=== PATIENT | male | born 1965 | race Caucasian/White ===

== ENCOUNTER 2017-06-01 14:18 | Emergency (ER) | payer OTHER ==
--- NOTE | 2017-06-01 14:47 | EDM.PDOC ---
ED HPI GENERAL MEDICAL PROBLEM - General Chief Complaint: Fever Stated Complaint: FEVER Time Seen by Provider: 06/01/17 14:38 Source of Information: Reports: Patient History Limitations: Reports: No Limitations - History of Present Illness INITIAL COMMENTS - FREE TEXT/NARRATIVE: 51-year-old male presents to the ED for evaluation of acute onset of high fever 103.2. His out her hunting from [place]. Patient is been ill for the last 9 days. He was seen in clinic and diagnosed with a sinus infection treated with a Z-Toñito and cough syrup for cough. He thought initially that his temp settled after 2 days of antibiotics the cough has persisted. He states he is a constant tickle in his throat that makes him cough since 2009 when he returned from [place]. He is coughing up small quantities of yellowish phlegm without hemoptysis. At present he has diffuse myalgia and a significant headache. Appetite has been poor but he is making himself eat. No dysuria urgency or frequency. No nausea vomiting or diarrhea. He's never been diagnosed a sinus infection in the past. He has had numerous tick bites in [facility] over the last 3-4 weeks. He's had no rashes to suggest tickborne illness. There is an outbreak of loss and virus that is tick born in [facility] this year. I'm unclear if it causes upper respiratory tract symptoms versus arthralgia and rash is similar to Lyme disease. Onset: Today (Fever spiked again today 103.2. Initial illness started May 22. Seem to improve after 2 days of Z-Toñito.) Duration: Day(s): Location: Reports: Chest, Generalized (Paroxysmal cough minimally productive. Generalized myalgia with headache.) Quality: Reports: Ache, Pressure Severity: Moderate Improves with: Reports: Medication (Motrin helps some.) Worsens with: Reports: Other Context: Reports: Other (Acute febrile illness.). Denies: Activity (Activity.) , Exercise, Lifting, Sick Contact, Trauma Associated Symptoms: Reports: Chest Pain, Cough, cough w sputum (From coughing) , Diaphoresis, Fever/Chills, Headaches, Loss of Appetite, Malaise, Shortness of Breath (Can't take a deep breath), Weakness (Today with the fever.). Denies: Confusion, Nausea/Vomiting, Rash, Seizure ( due to coughing.), Syncope Treatments [employer]: Reports: NSAIDS (Motrin.) - Related Data Allergies Allergy/AdvReac Type Severity Reaction Status Date / Time No Known Allergies Allergy Verified 06/01/17 14:29 Home Meds: Home Meds Benzonatate 100 mg PO TID PRN 06/01/17 [History] Hydrocodone/Chlorphen P-Stirex [Tussionex Pennkinetic Susp] 5 ml PO Q12H PRN # 60 ml 06/01/17 [Rx] Levofloxacin [Levaquin] 500 mg PO Q24H #10 tablet 06/01/17 [Rx] Past Medical History - Past Health History Medical/Surgical History: Denies Medical/Surgical History Social & Family History - Tobacco Use Smoking Status *Q: Never Smoker - Recreational Drug Use Recreational Drug Use: No ED ROS GENERAL - Review of Systems Review Of Systems: See Below Constitutional: Reports: Fever, Chills, Malaise, Weakness, Fatigue, Decreased Appetite, Weight Loss HEENT: Denies: Hearing Loss, Nose Pain, Vertigo Respiratory: Reports: Shortness of Breath, Cough. Denies: Hemoptysis (Severe paroxysmal cough that is minimally productive.) Cardiovascular: Reports: Chest Pain, Lightheadedness. Denies: Blood Pressure Problem (Only from coughing so much.), Claudication, Dyspnea on Exertion, Edema (At times from coughing so much.), Orthopnea Endocrine: Reports: Fatigue GI/Abdominal: Reports: Decreased Appetite. Denies: Distension, Flatus, Hematemesis, Hematochezia : Reports: No Symptoms Musculoskeletal: Reports: Muscle Pain Skin: Reports: No Symptoms (Generalized myalgia) Neurological: Reports: Dizziness (At times with high fever). Denies: Confusion , Numbness, Tingling Psychiatric: Reports: No Symptoms Hematologic/Lymphatic: Reports: No Symptoms Immunologic: Reports: No Symptoms ED EXAM, GENERAL - Physical Exam Exam: See Below Exam Limited By: No Limitations General Appearance: Alert, Lethargic, Other (Appears ill.) Eye Exam: Bilateral Eye: Normal Inspection Nose: Nasal Tenderness Throat/Mouth: Normal Inspection, Normal Lips, Normal Teeth, Normal Oropharynx Head: Atraumatic, Normocephalic Neck: Normal Inspection, Supple, Non-Tender, Full Range of Motion. No: Lymphadenopathy (L), Lymphadenopathy (R) Respiratory/Chest: No Respiratory Distress, Lungs Clear, Normal Breath Sounds, No Accessory Muscle Use Cardiovascular: Normal Peripheral Pulses, Regular Rate, Rhythm, No Edema, No Gallop, No Murmur Peripheral Pulses: 3+: Posterior Tibial (L), Posterior Tibial (R), Dorsalis Pedis (L), Dorsalis Pedis (R) GI/Abdominal: Normal Bowel Sounds, Soft, Non-Tender, No Organomegaly, No Abnormal Bruit, Pelvis Stable Back Exam: Normal Inspection, Full Range of Motion Extremities: Normal Inspection, Normal Range of Motion, Non-Tender, No Pedal Edema, Normal Capillary Refill Neurological: Alert, Oriented, CN II-XII Intact, Normal Cognition, Normal Gait Psychiatric: Normal Affect, Normal Mood Skin Exam: Warm, Dry, Intact, Normal Color, No Rash Course - Vital Signs Last Recorded V/S: Last Vital Signs Temp 36.6 C 06/01/17 17:01 Pulse 80 06/01/17 17:01 Resp 16 06/01/17 17:01 BP 99/69 06/01/17 17:01 Pulse Ox 93 L 06/01/17 17:01 - Orders/Labs/Meds Orders: Active Orders 24 hr Category Date Time Status Chest 2V [CR] Stat Exams 06/01/17 14:45 Taken STEVEN BRANCH NUCLEIC ACID AMP [MREF] Stat Lab 06/01/17 15:00 Received CULTURE BLOOD [BC] Stat Lab 06/01/17 15:00 Received CULTURE BLOOD [BC] Stat Lab 06/01/17 15:05 Received Blood Culture x2 Reflex Set [OM.PC] Stat Oth 06/01/17 14:49 Ordered Labs: Laboratory Tests 06/01/17 06/01/17 06/01/17 Range/Units 15:00 15:00 15:00 WBC 2.61 L (4.23-9.07) K/mm3 RBC 4.51 L (4.63-6.08) M/mm3 Hgb 14.0 (13.7-17.5) gm/L Hct 40.8 (40.1-51.0) % MCV 90.5 (79.0-92.2) fl MCH 31.0 (25.7-32.2) pg MCHC 34.3 (32.2-35.5) g/dl RDW Std Deviation 41.8 (35.1-43.9) fL Plt Count 105 L (163-337) K/mm3 MPV 9.5 (9.4-12.3) fl Neutrophils % (Manual) 60 (40-60) % Band Neutrophils % 0 (0-10) % Lymphocytes % (Manual) 38 (20-40) % Atypical Lymphs % 0 % Monocytes % (Manual) 1 L (2-10) % Eosinophils % (Manual) 0 L (0.8-7.0) % Basophils % (Manual) 1 (0.2-1.2) Platelet Estimate Adequate Plt Morphology Comment Normal RBC Morph Comment Normal ESR 21 H (0-15) mm/hr Sodium 145 (136-145) mEq/L Potassium 3.7 (3.5-5.1) mEq/L Chloride 107 (98-107) mEq/L Carbon Dioxide 27 (21-32) mEq/L Anion Gap 14.7 (5-15) BUN 14 (7-18) mg/dL Creatinine 1.3 (0.7-1.3) mg/dL Est Cr Clr Drug Dosing 73.21 mL/min Estimated GFR (MDRD) 59 (>60) mL/min BUN/Creatinine Ratio 10.8 L (14-18) Glucose 108 H (74-106) mg/dL Calcium 8.3 L (8.5-10.1) mg/dL Total Bilirubin 0.7 (0.2-1.0) mg/dL AST 43 H (15-37) U/L ALT 77 H (16-63) U/L Alkaline Phosphatase 77 (46-116) U/L C-Reactive Protein 5.2 H* (<1.0) mg/dL Total Protein 6.7 (6.4-8.2) g/dl Albumin 3.5 (3.4-5.0) g/dl Globulin 3.2 gm/dL Albumin/Globulin Ratio 1.1 (1-2) Meds: Medications Discontinued Medications Generic Name Dose Route Start Last Admin Trade Name Freq PRN Reason Stop Dose Admin Acetaminophen 975 mg 06/01/17 14:48 06/01/17 15:06 Tylenol PO 06/01/17 14:49 975 mg NOW ONE Administration Dextrose/Sodium Chloride 1,000 mls @ 999 mls/hr 06/01/17 15:00 06/01/17 15:07 Dextrose 5%-Normal Saline IV 999 mls/hr ASDIRECTED MICHAEL Administration Ketorolac Tromethamine 30 mg 06/01/17 15:00 06/01/17 15:06 Toradol IVPUSH 30 mg ONETIME MICHAEL Administration - Radiology Interpretation Free Text/Narrative:: 51-year-old male presents the ED with acute onset of high fever by 103.6. Patient is been ill for about 9 days. He did see a doctor back home in [place] and was placed on a Z-Toñito and Tessalon Perles for cough relief. He states after couple days his fever seemed to break but since he's finish up the Z-Toñito his fever has returned today and he's associated generalized myalgia and severe headache. Has a history of multiple tick bites about 3 weeks ago and poor some virus has been a problem in [facility] where he resides. I will send serology off I believe it'll go to [facility] or [place] for analysis. We' ll also check for Lyme disease although this is less likely since he has no arthralgia in his knees or rashes. He will have a septic workup completed her including blood cultures 2. Will give Toradol 30 mg IV for headache relief. Tylenol 975 mg by mouth for fever relief. IV will be D5 normal saline at open. - Re-Assessments/Exams Free Text/Narrative Re-Assessment/Exam: 06/01/17 15:43 chest x-ray done portably is within normal limits showing no signs of pneumonia on two-view chest x-ray. Influenza screen is negative. 06/01/17 16:27 Labs are back. White count is low at 2.61. Differential is 60% neutrophils and 38% lymphocytes. Hemoglobin is 14.0 platelets 105,008 low normal. Sedimentation rate is mildly elevated at 21. Sodium 145 potassium 3.7. Chloride 107 bicarbonate 27. Anion gap is normal at 14.7 BUNs 14 creatinine is 1.3 with an EGFR 59. Glucose is 108 calcium 8.3 total bilirubin 0.7 AST is 43 ALT is 77 alk phosphatase is 77 CRP is elevated at 5.2. 06/01/17 16:39 Lab tests are strongly suspicious for a viral etiology to his current illness. He identifies that the tics that were on him were very small and therefore the possibiility of [place] virus infection does exist. The problem I have is that he has a partially treated bacterial infection since he just finished a Z-Toñito yesterday. I'm going to elect to place him on Levaquin 500 mg once daily for 10 days. He will continue Motrin 600 mg every 6 hours for fever and body ache and headache relief. He feels much better at this point time I think after having fluids and Toradol to relieve his headache as well as Tylenol for her fever relief. Advised him to follow-up with his physician once he gets back home if he is not markedly improved in terms of fever is going away and no more headaches. I will call him if his pertussis screen is positive. Lyme disease titers are also pending. This is unlikely as he identifies the tics were never very large or swollen. Departure - Departure Time of Disposition: 16:41 Disposition: Home, Self-Care 01 Condition: Fair Clinical Impression: Febrile illness, acute, Bronchitis - Discharge Information Prescriptions: Hydrocodone/Chlorphen P-Stirex [Tussionex Pennkinetic Susp] 5 ml PO Q12H PRN # 60 ml PRN Reason: Cough relief Levofloxacin [Levaquin] 500 mg PO Q24H #10 tablet Instructions: Fever, Adult Referrals: PCP,Not In Area [Primary Care Provider] - Forms: ED Department Discharge Additional Instructions: Evaluation in the emergency room carried out today due to high fever associated bad headache and persistent paroxysmal cough with minimal sputum production. Generalized aches and pains in the muscles and joints mid which we call myalgia. Illness started about 9 days ago and seemed to be somewhat improved after use of Z-Toñito. Symptoms returned with high fever over the last 24 hours. Paroxysmal cough has been going on for a lengthy period of time and deserves further investigation by way of upper GI endoscopy and ENT consult. Investigations carried out in the hospital today revealed a normal 2 view chest x-ray without any signs of pneumonia. Lab work reveals a little low white blood cell count suggesting a viral etiology to your infection. However markers were used for bacterial infection called CRP is elevated at 5.2. I'm therefore stuck because you have been on recent antibiotics and I may be seeing a masked bacterial infection. I therefore going to place her on Levaquin 500 mg once daily for 10 days which will eradicate most of the organisms that could cause upper respiratory tract infection sinus infection etc. My concern is that you may have picked up a viral infection from tick borne illness such as the poor and virus labs have been sent away to steady to see if you have any antibodies to tickborne illnesses. I will of course call you if any of them come back positive. In the meantime continue Motrin 600 mg every 6 hours to be down fever and body aches. I did write a prescription for a prescription cough syrup called [place] but she will not be able to fill it until tomorrow as there are no drug stores open today. Cleared teaspoon about an hour before planning to go to bed will help stop paroxysmal cough and at least allow you to sleep. - My Orders Last 24 Hours: My Active Orders 06/01/17 14:45 Chest 2V [CR] Stat 06/01/17 14:49 Blood Culture x2 Reflex Set [OM.PC] Stat 06/01/17 15:00 BORD PERTUSS NUCLEIC ACID AMP [MREF] Stat CULTURE BLOOD [BC] Stat 06/01/17 15:05 CULTURE BLOOD [BC] Stat - Assessment/Plan Last 24 Hours: My Active Orders 06/01/17 14:45 Chest 2V [CR] Stat 06/01/17 14:49 Blood Culture x2 Reflex Set [OM.PC] Stat 06/01/17 15:00 BORD PERTUSS NUCLEIC ACID AMP [MREF] Stat CULTURE BLOOD [BC] Stat 06/01/17 15:05 CULTURE BLOOD [BC] Stat
[2017-06-01] MEDS ORDERED: Acetaminophen 325 MG Tab PO ONE (14:48)
[2017-06-01] MEDS ORDERED: Dextrose 5%-0.9% NaCl 1,000 ML IV SCH (15:00)
[2017-06-01] MEDS ORDERED: Ketorolac 30 MG/ML SDV IVPUSH SCH (15:00)
--- NOTE | 2017-06-01 19:59 | CR ---
Chest: Two views of the chest were obtained. Comparison: No previous study. Heart size and mediastinum are normal. Lungs are clear. Bony structures are within normal limits for the patient's age. Impression: 1. Nothing acute is seen on two-view chest x-ray. Diagnostic code #1
== END 2017-06-01 16:55 | disposition home or self-care (01) ==
LOC: JD.ED 14:18
DX: J40 Bronchitis, not specified as acute or chronic (principal)
CPT/HCPCS: 36415; 71020; 80053; 85025; 85652; 86140; 86618; 86788; 86789; 87040; 87804; 96361; 96374; 99284; A9270; J1885; J7042; 86638; 87798